=== PATIENT | female | born 1945 | race Two or more races ===

== ENCOUNTER → 2017-01-17 | Outpatient (CLI) | payer OTHER ==
[~2017-01-17] MED LIST: ASPI-1213 PO; ATEN-187 PO; CLOP75 PO; FENO145T PO; HUMALOG SQ; LANTUS; METF1000 PO; VALS160T2 PO
== END | disposition home or self-care (01) ==
LOC: RADPV 11:56
PROVIDERS: ATTEND Internal Medicine Cardiovascular Disease
DX: I08.0 Rheumatic disorders of both mitral and aortic valves (principal); I25.10 Atherosclerotic heart disease of native coronary artery without angina pectoris
CPT/HCPCS: 93306